=== PATIENT | female | born 1980 | race American Indian/Alaskan Native ===

== ENCOUNTER 2017-10-14 22:14 | Emergency (ER) | payer MEDICAID, OTHER ==
[2017-10-14 22:41] VITALS: BP 117/72
[2017-10-14] MEDS ORDERED: HYDROmorphone 1 MG/ML Syringe IM ONE (22:53)
[2017-10-14] MEDS ORDERED: diphenhydrAMINE 25 MG Cap PO ONE (22:53)
[2017-10-14] MEDS ORDERED: Ondansetron 4 MG Tab.DIS PO ONE (22:53)
--- NOTE | 2017-10-14 22:59 | EDM.PDOC ---
ED HPI GENERAL MEDICAL PROBLEM - General Chief Complaint: Headache Stated Complaint: Migraine Time Seen by Provider: 10/14/17 22:46 Source of Information: Reports: Patient, Family - History of Present Illness INITIAL COMMENTS - FREE TEXT/NARRATIVE: Patient reports migraine headache. She is here this evening due to the pain. Reports that she fell approximately 3 months ago and ever since then she has had daily migraine headaches. She does see neurology and her next appointment is this coming Sunday. Just states she's had problems with memory loss and she is seeing a specialist for this a week from this coming Sunday. She also does report some nausea. Additional symptoms that she reports is bladder incontinence. She has not had any of this this evening however. She was seen at the [facility] yesterday for similar symptoms and given Benadryl and an anti- inflammatory which she states was not helpful. She denies blurry vision. Additional symptoms denied include shortness of breath, chest pain, abdominal pain, fever or chills, any history of kidney problems. She denies blood in urine or stool or recent falls. Onset: Other Duration: Chronic Location: Reports: Head Quality: Reports: Stabbing Severity: Severe Associated Symptoms: Reports: Headaches, Nausea/Vomiting Treatments APPRENTICE: Reports: Other (see below) Other Treatments APPRENTICE: Toradol and Imitrex Headache Pain Score (Numeric/FACES): 10 - Related Data Allergies Allergy/AdvReac Type Severity Reaction Status Date / Time codeine Allergy Severe Anaphylactic Verified 10/13/17 19:15 Shock Home Meds: Home Meds Polyethylene Glycol 3350 [MiraLAX] 17 gm PO BID PRN 03/04/17 [History] Albuterol [Ventolin HFA] 2 puff PO Q2H PRN 07/24/17 [History] Amitriptyline [Elavil] 25 mg PO BEDTIME 07/24/17 [History] ClonazePAM [KlonoPIN] 0.5 mg PO BID 07/24/17 [History] Ibuprofen [Motrin] 600 mg PO Q6H #20 tab 07/24/17 [Rx] Escitalopram [Lexapro] 10 mg PO DAILY 07/30/17 [History] Past Medical History HEENT History: Reports: Impaired Vision Respiratory History: Reports: Other (See Below) Other Respiratory History: smoker Gastrointestinal History: Reports: Cholelithiasis, Hemorrhoids, Pancreatitis Genitourinary History: Reports: None 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 Uterine Bleeding, Musculoskeletal History: Reports: Arthritis Neurological History: Reports: Concussion, Headaches, Chronic, Migraines Other Neuro History: nuerofibromatosis, 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 Psychiatric History: Reports: Anxiety, Depression, Panic Attack, Psych Hospitalization(s), Suicide Attempt Hematologic History: Reports: Blood Transfusion(s) - Infectious Disease History Infectious Disease History: Reports: None - Past Surgical History GI Surgical History: Reports: Appendectomy, Cholecystectomy Female Surgical History: Reports: Section, Hysterectomy, Oophorectomy Social & Family History - Tobacco Use Smoking Status *Q: Current Every Day Smoker Years of Tobacco use: 11 Packs/Tins Daily: 0.5 Used Tobacco, but Quit: No Second Hand Smoke Exposure: Yes - Caffeine Use Caffeine Use: Reports: Coffee, Soda - Alcohol Use Days Per Week of Alcohol Use: 0 Number of Drinks Per Day: 2 Total Drinks Per Week: 0 - Recreational Drug Use Recreational Drug Use: No Drug Use in Last 12 Months: Yes Recreational Drug Type: Reports: Marijuana/Hashish Recreational Drug Use Frequency: Daily ED ROS GENERAL - Review of Systems Review Of Systems: See Below Constitutional: Reports: No Symptoms HEENT: Reports: No Symptoms Respiratory: Reports: No Symptoms Cardiovascular: Reports: No Symptoms Endocrine: Reports: No Symptoms GI/Abdominal: Reports: No Symptoms : Reports: No Symptoms Musculoskeletal: Reports: No Symptoms Skin: Reports: No Symptoms Neurological: Reports: Headache Psychiatric: Reports: No Symptoms Hematologic/Lymphatic: Reports: No Symptoms Immunologic: Reports: No Symptoms - Physical Exam Exam: See Below Exam Limited By: No Limitations General Appearance: Alert, WD/WN, Mild Distress Eye Exam: Bilateral Eye: EOMI, Normal Inspection, PERRL Ears: Normal TMs Nose: Normal Inspection, Normal Mucosa, No Blood Throat/Mouth: Normal Inspection, Normal Lips, Normal Teeth, Normal Gums, Normal Oropharynx, Normal Voice, No Airway Compromise Head Exam: Atraumatic, Normocephalic Neck: Normal Inspection, Supple, Non-Tender, Full Range of Motion Respiratory/Chest: No Respiratory Distress, Lungs Clear, Normal Breath Sounds, No Accessory Muscle Use, Chest Non-Tender Cardiovascular: Normal Peripheral Pulses, Regular Rate, Rhythm, No Edema, No Gallop, No JVD, No Murmur, No Rub GI/Abdominal: Normal Bowel Sounds, Soft, Non-Tender, No Organomegaly, No Distention, No Abnormal Bruit, No Mass Neuro Exam (Abbreviated): Alert, Oriented, CN II-XII Intact, Memory Loss Recent Events DTR: 2+: Patella (R), Patella (L), Achilles (R), Achilles (L) Back Exam: Normal Inspection, Full Range of Motion, NT Extremities: Normal Inspection, Normal Range of Motion, Non-Tender, No Pedal Edema, Normal Capillary Refill Psychiatric: Normal Affect, Normal Mood Skin Exam: Warm, Dry, Intact, Normal Color, No Rash Course - Vital Signs Last Recorded V/S: Last Vital Signs Temp 36.6 C 10/14/17 22:39 Pulse 90 10/14/17 22:39 Resp 16 10/14/17 22:39 BP 117/72 10/14/17 22:39 Pulse Ox 99 10/14/17 22:39 - Orders/Labs/Meds Meds: Medications Discontinued Medications Generic Name Dose Route Start Last Admin Trade Name Maryellen PRN Reason Stop Dose Admin Diphenhydramine HCl 25 mg 10/14/17 22:53 Benadryl PO 10/14/17 22:54 ONETIME ONE Hydromorphone HCl 1 mg 10/14/17 22:53 Dilaudid IM 10/14/17 22:54 ONETIME ONE Ondansetron HCl 4 mg 10/14/17 22:53 Zofran Odt PO 10/14/17 22:54 ONETIME ONE Departure - Departure Time of Disposition: 23:10 Disposition: Home, Self-Care 01 Condition: Good Clinical Impression: Migraine - Discharge Information Instructions: Migraine Headache, [id number] Referrals: Deborah Sandoval SLUBBER FRAME CHANGER [Primary Care Provider] - Forms: ED Department Discharge Additional Instructions: Please try to avoid triggers for your migraine headaches. These can include food items, smoking, caffeine, stress, illness, dehydration, to much exercise. It can be helpful to journal to determine what happens just prior to the onset of your headaches. Please make sure to follow up with your providers as scheduled. Stay well hydrated. Please contact us if you have additional questions or concerns. - Problem List & Annotations (1) Migraine SNOMED Code(s): 05196003 Code(s): G43.909 - MIGRAINE, UNSP, NOT INTRACTABLE, WITHOUT STATUS MIGRAINOSUS Status: Acute Priority: Medium Current Visit: Yes - Problem List Review Problem List Initiated/Reviewed/Updated: Yes - Assessment/Plan Assessment:: migraine headache Plan: Please try to avoid triggers for your migraine headaches. These can include food items, smoking, caffeine, stress, illness, dehydration, to much exercise. It can be helpful to journal to determine what happens just prior to the onset of your headaches. Please make sure to follow up with your providers as scheduled. Stay well hydrated. Please contact us if you have additional questions or concerns.
[2017-10-14] MEDS ORDERED: Take Home: Acetaminophen/HYDROcodone 325-10 MG, 5 Tab Pack PO ONE (23:11)
== END 2017-10-14 23:29 | disposition home or self-care (01) ==
LOC: VM.ED 22:14
DX: G43.909 Migraine, unspecified, not intractable, without status migrainosus (principal); F17.210 Nicotine dependence, cigarettes, uncomplicated; F41.9 Anxiety disorder, unspecified; F32.9 Major depressive disorder, single episode, unspecified; Z79.899 Other long term (current) drug therapy; Z88.5 Allergy status to narcotic agent; Z91.81 History of falling
CPT/HCPCS: 96372; 99283; A9270-GY; J1170

== ENCOUNTER 2017-11-21 21:19 | Emergency (ER) | payer MEDICAID ==
[2017-11-21] MEDS: Ketorolac 60 MG/2 ML SDV IM ONE (21:59)
[2017-11-21] MEDS: diphenhydrAMINE 50 MG/ML SDV IM ONE (22:00)
[2017-11-21] MEDS: Ondansetron 4 MG Tab.DIS PO ONE (22:00)
[2017-11-21 22:19] VITALS: BP 104/53
--- NOTE | 2017-11-22 03:41 | EDM.PDOC ---
ED HPI GENERAL MEDICAL PROBLEM - General Chief Complaint: Headache Stated Complaint: Right sided headache Time Seen by Provider: 11/21/17 21:35 Source of Information: Reports: Patient History Limitations: Reports: No Limitations - History of Present Illness INITIAL COMMENTS - FREE TEXT/NARRATIVE: Pt. presents to er with complaints of headache. He states that the discomfort started yesterday. Denies any fever or chills. No recent trauma. Denies any numbness/tingling in her face/extremities. Onset: Today Location: Reports: Head Quality: Reports: Ache Right Headache Pain Score (Numeric/FACES): 6 - Related Data Allergies Allergy/AdvReac Type Severity Reaction Status Date / Time codeine Allergy Severe Anaphylactic Verified 11/21/17 22:16 Shock Home Meds: Home Meds Polyethylene Glycol 3350 [MiraLAX] 17 gm PO BID PRN 03/04/17 [History] Albuterol [Ventolin HFA] 2 puff PO Q2H PRN 07/24/17 [History] Amitriptyline [Elavil] 25 mg PO BEDTIME 07/24/17 [History] ClonazePAM [KlonoPIN] 0.5 mg PO BID 07/24/17 [History] Ibuprofen [Motrin] 600 mg PO Q6H #20 tab 07/24/17 [Rx] Escitalopram [Lexapro] 10 mg PO DAILY 07/30/17 [History] Past Medical History HEENT History: Reports: Impaired Vision Respiratory History: Reports: Other (See Below) Other Respiratory History: smoker Gastrointestinal History: Reports: Cholelithiasis, Hemorrhoids, Pancreatitis Genitourinary History: Reports: None 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, Musculoskeletal History: Reports: Arthritis Neurological History: Reports: Concussion, Headaches, Chronic, Migraines Other Neuro History: nuerofibromatosis, 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 Psychiatric History: Reports: Anxiety, Depression, Panic Attack, Psych Hospitalization(s), Suicide Attempt Hematologic History: Reports: Blood Transfusion(s) - Infectious Disease History Infectious Disease History: Reports: None - Past Surgical History GI Surgical History: Reports: Appendectomy, Cholecystectomy Female Surgical History: Reports: Section, Hysterectomy, Oophorectomy Social & Family History - Caffeine Use Caffeine Use: Reports: Coffee, Soda ED ROS GENERAL - Review of Systems Review Of Systems: See Below Constitutional: Reports: No Symptoms HEENT: Reports: No Symptoms Respiratory: Reports: No Symptoms Cardiovascular: Reports: No Symptoms Endocrine: Reports: No Symptoms GI/Abdominal: Reports: No Symptoms : Reports: No Symptoms Musculoskeletal: Reports: No Symptoms Skin: Reports: No Symptoms Neurological: Reports: Headache. Denies: Confusion, Dizziness, Numbness, Paresthesia, Pre-Existing Deficit, Seizure, Syncope, Trouble Speaking, Difficulty Walking, Change in Speech, Gait Disturbance Psychiatric: Reports: No Symptoms Hematologic/Lymphatic: Reports: No Symptoms Immunologic: Reports: No Symptoms ED EXAM, GENERAL - Physical Exam Exam: See Below Exam Limited By: No Limitations General Appearance: Alert, WD/WN, No Apparent Distress Eye Exam: Bilateral Eye: EOMI, Normal Fundi, Normal Inspection, PERRL Ears: Normal External Exam, Normal Canal, Hearing Grossly Normal, Normal TMs Ear Exam: Bilateral Ear: Auricle Normal, Canal Normal, TM normal Nose: Normal Inspection, Normal Mucosa, No Blood Throat/Mouth: Normal Inspection, Normal Lips, Normal Teeth, Normal Gums, Normal Oropharynx, Normal Voice, No Airway Compromise Head: Atraumatic, Normocephalic Neck: Normal Inspection, Supple, Non-Tender, Full Range of Motion Respiratory/Chest: No Respiratory Distress, Lungs Clear, Normal Breath Sounds, No Accessory Muscle Use, Chest Non-Tender Cardiovascular: Normal Peripheral Pulses, Regular Rate, Rhythm, No Edema, No Gallop, No JVD, No Murmur, No Rub Peripheral Pulses: 4+: Radial (L), Radial (R) GI/Abdominal: Normal Bowel Sounds, Soft, Non-Tender, No Organomegaly, No Distention, No Abnormal Bruit, No Mass (Female) Exam: Deferred Rectal (Female) Exam: Deferred Back Exam: Normal Inspection, Full Range of Motion, NT Extremities: Normal Inspection, Normal Range of Motion, Non-Tender, Normal Capillary Refill, No Pedal Edema Neurological: Alert, Oriented, CN II-XII Intact, Normal Cognition, Normal Gait, Normal Reflexes, No Motor/Sensory Deficits Psychiatric: Normal Affect, Normal Mood Skin Exam: Warm, Dry, Intact, Normal Color, No Rash Lymphatic: No Adenopathy Course - Vital Signs Last Recorded V/S: Last Vital Signs Temp 35.9 C 11/21/17 21:45 Pulse 48 L 11/21/17 21:45 Resp 16 11/21/17 21:45 BP 104/53 L 11/21/17 21:45 Pulse Ox - Orders/Labs/Meds Meds: Medications Discontinued Medications Generic Name Dose Route Start Last Admin Trade Name Maryellen PRN Reason Stop Dose Admin Chlorpromazine HCl 50 mg 11/21/17 21:40 11/21/17 22:05 Thorazine IM 11/21/17 21:41 50 mg ONETIME ONE Administration Diphenhydramine HCl 50 mg 11/21/17 21:40 11/21/17 22:00 Benadryl IM 11/21/17 21:41 50 mg ONETIME ONE Administration Ketorolac Tromethamine 60 mg 11/21/17 21:41 11/21/17 21:59 Toradol IM 11/21/17 21:42 60 mg ONETIME ONE Administration Ondansetron HCl 4 mg 11/21/17 21:42 11/21/17 22:00 Zofran Odt PO 11/21/17 21:43 4 mg ONETIME ONE Administration Departure - Departure Time of Disposition: 22:33 Disposition: Home, Self-Care 01 Clinical Impression: Migraine - Discharge Information Instructions: Migraine Headache Referrals: Taina Graham MD [Primary Care Provider] - Forms: ED Department Discharge Additional Instructions: Home to rest. Ibuprofen 800mg every 8 hours Follow-up in clinic in 7-10 days for recheck.
== END 2017-11-21 22:33 | disposition home or self-care (01) ==
LOC: VM.ED 21:19
DX: G43.909 Migraine, unspecified, not intractable, without status migrainosus (principal); Z88.5 Allergy status to narcotic agent; Z79.899 Other long term (current) drug therapy; F41.9 Anxiety disorder, unspecified; F32.9 Major depressive disorder, single episode, unspecified; F17.200 Nicotine dependence, unspecified, uncomplicated
CPT/HCPCS: 96372; 99283; A9270; J1200; J1885; J3230

== ENCOUNTER 2018-01-13 05:00 | Emergency (ER) | payer MEDICAID ==
[2018-01-13 05:09] VITALS: BP 118/71
--- NOTE | 2018-01-13 07:39 | EDM.PDOC ---
ED HPI GENERAL MEDICAL PROBLEM - General Chief Complaint: Lower Extremity Injury/Pain Stated Complaint: Injury to top of right foot Time Seen by Provider: 01/13/18 05:15 Source of Information: Reports: Patient History Limitations: Reports: No Limitations - History of Present Illness INITIAL COMMENTS - FREE TEXT/NARRATIVE: Pt. states that a piece of wood was accidentally dropped on her R foot. He complains of an abrasion to the top of the foot and discomfort with movement/ ambulation. Denies any injury elsewhere. Location: Reports: Lower Extremity, Right Quality: Reports: Ache, Throbbing Severity: Moderate top of right foot Pain Score (Numeric/FACES): 7 - Related Data Allergies Allergy/AdvReac Type Severity Reaction Status Date / Time codeine Allergy Severe Anaphylactic Verified 01/13/18 05:10 Shock Home Meds: Home Meds Polyethylene Glycol 3350 [MiraLAX] 17 gm PO BID PRN 03/04/17 [History] Albuterol [Ventolin HFA] 2 puff PO Q2H PRN 07/24/17 [History] Amitriptyline [Elavil] 25 mg PO BEDTIME 07/24/17 [History] ClonazePAM [KlonoPIN] 0.5 mg PO BID 07/24/17 [History] Ibuprofen [Motrin] 600 mg PO Q6H #20 tab 07/24/17 [Rx] Escitalopram [Lexapro] 10 mg PO DAILY 07/30/17 [History] Past Medical History HEENT History: Reports: Impaired Vision Respiratory History: Reports: Other (See Below) Other Respiratory History: smoker Gastrointestinal History: Reports: Cholelithiasis, Hemorrhoids, Pancreatitis Genitourinary History: Reports: None 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: Dysfunctional Uterine Bleeding, Musculoskeletal History: Reports: Arthritis Neurological History: Reports: Concussion, Headaches, Chronic, Migraines Other Neuro History: nuerofibromatosis, 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 Psychiatric History: Reports: Anxiety, Depression, Panic Attack, Psych Hospitalization(s), Suicide Attempt Hematologic History: Reports: Blood Transfusion(s) - Infectious Disease History Infectious Disease History: Reports: None - Past Surgical History GI Surgical History: Reports: Appendectomy, Cholecystectomy Female Surgical History: Reports: Section, Hysterectomy, Oophorectomy Social & Family History - Caffeine Use Caffeine Use: Reports: Coffee, Soda Review of Systems - Review of Systems Review Of Systems: See Below Constitutional: Reports: No Symptoms Musculoskeletal: Reports: Foot Pain Skin: Reports: No Symptoms Neurological: Reports: No Symptoms ED EXAM, GENERAL - Physical Exam Exam: See Below Exam Limited By: No Limitations General Appearance: Alert, WD/WN, No Apparent Distress Peripheral Pulses: 4+: Radial (L), Radial (R), Posterior Tibial (L), Posterior Tibial (R), Dorsalis Pedis (L), Dorsalis Pedis (R) Extremities: Normal Capillary Refill, Limited Range of Motion, Other (small abrasion, edema, and bruising noted to top of R foot. No crepitus noted. ROM is limited.) Course - Vital Signs Last Recorded V/S: Last Vital Signs Temp 36.9 C 01/13/18 05:00 Pulse 103 H 01/13/18 05:00 Resp 16 01/13/18 05:00 BP 118/71 01/13/18 05:00 Pulse Ox - Orders/Labs/Meds Orders: Active Orders 24 hr Category Date Time Status Foot Comp Min 3V Rt [CR] Stat Exams 01/13/18 05:16 Taken DME for Discharge [COMM] Routine Oth 01/13/18 06:15 Ordered - Radiology Interpretation Free Text/Narrative:: radiographs of R foot are negative Departure - Departure Time of Disposition: 06:17 Disposition: Home, Self-Care 01 Clinical Impression: Contusion, foot - Discharge Information Instructions: Foot Contusion, [id number] Referrals: PCP,Unobtain [Primary Care Provider] - Forms: ED Department Discharge Additional Instructions: Tylenol or ibuprofen for discomfort. Ice foot for 10-15 min every 1-2 hours Elevate foot above level of heart as much as possible. Follow-up in clinic if not gradually improving. - My Orders Last 24 Hours: My Active Orders 01/13/18 05:16 Foot Comp Min 3V Rt [CR] Stat 01/13/18 06:15 DME for Discharge [COMM] Routine - Assessment/Plan Last 24 Hours: My Active Orders 01/13/18 05:16 Foot Comp Min 3V Rt [CR] Stat 01/13/18 06:15 DME for Discharge [COMM] Routine Plan: Tylenol or ibuprofen for discomfort. Ice foot for 10-15 min every 1-2 hours Elevate foot above level of heart as much as possible. Follow-up in clinic if not gradually improving.
== END 2018-01-13 06:23 | disposition home or self-care (01) ==
LOC: VM.ED 05:00
DX: S90.31XA Contusion of right foot, initial encounter (principal); Z88.5 Allergy status to narcotic agent; Z79.899 Other long term (current) drug therapy; W20.8XXA Other cause of strike by thrown, projected or falling object, initial encounter
CPT/HCPCS: 73630-RT; 99283

== ENCOUNTER 2018-09-09 21:05 | Emergency (ER) | payer OTHER, MEDICAID ==
[2018-09-09] MEDS: Ketorolac 30 MG/ML SDV IM ONE (22:00)
--- NOTE | 2018-09-09 22:42 | EDM.PDOC ---
ED HPI GENERAL MEDICAL PROBLEM - General Chief Complaint: Upper Extremity Injury/Pain Stated Complaint: RT SHOULDER/ELBOW PAIN Time Seen by Provider: 09/09/18 21:09 Source of Information: Reports: Patient History Limitations: Reports: No Limitations - History of Present Illness INITIAL COMMENTS - FREE TEXT/NARRATIVE: Patient presents with right elbow and shoulder pain. 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 She states she has numbness/tingling to her fingers. Injury is closed with limited swelling. Denies loss of consciousness. Onset: Today, Sudden Duration: Intermittent Location: Reports: Upper Extremity, Right Quality: Reports: Ache, Throbbing Severity: Mild Improves with: Reports: Cold Therapy Worsens with: Reports: Movement Associated Symptoms: Reports: No Other Symptoms - Related Data Allergies Allergy/AdvReac Type Severity Reaction Status Date / Time codeine Allergy Severe Anaphylactic Verified 06/26/18 13:40 Shock Home Meds: Home Meds Albuterol [Ventolin HFA] 1 - 2 puff PO Q4HR PRN 07/24/17 [History] Amitriptyline [Elavil] 25 mg PO BEDTIME 07/24/17 [History] Ibuprofen [Motrin] 600 mg PO Q6H #20 tab 07/24/17 [Rx] Rizatriptan Benzoate [Rizatriptan] 10 mg PO ASDIRECTED 06/26/18 [History] Past Medical History HEENT History: Reports: Impaired Vision Respiratory History: Reports: Other (See Below) Other Respiratory History: smoker Gastrointestinal History: Reports: Cholelithiasis, Hemorrhoids, Pancreatitis Genitourinary History: Reports: None 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, Musculoskeletal History: Reports: Arthritis Neurological History: Reports: Concussion, Headaches, Chronic, Migraines Other Neuro History: nuerofibromatosis, 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 Psychiatric History: Reports: Anxiety, Depression, Panic Attack, Psych Hospitalization(s), Suicide Attempt Hematologic History: Reports: Blood Transfusion(s) - Infectious Disease History Infectious Disease History: Reports: None - Past Surgical History GI Surgical History: Reports: Appendectomy, Cholecystectomy Female Surgical History: Reports: Section, Hysterectomy, Oophorectomy Social & Family History - Caffeine Use Caffeine Use: Reports: Coffee, Soda Review of Systems - Review of Systems Review Of Systems: See Below Constitutional: Reports: No Symptoms Eyes: Reports: No Symptoms Ears: Reports: No Symptoms Nose: Reports: No Symptoms Mouth/Throat: Reports: No Symptoms Respiratory: Reports: No Symptoms Cardiovascular: Reports: No Symptoms GI/Abdominal: Reports: No Symptoms Genitourinary: Reports: No Symptoms Musculoskeletal: Reports: Shoulder Pain (right shoulder and elbow), Arm Pain Skin: Reports: No Symptoms Neurological: Reports: Numbness, Tingling (to right fingers) Psychiatric: Reports: No Symptoms ED EXAM, GENERAL - Physical Exam Exam: See Below Exam Limited By: No Limitations General Appearance: Alert, WD/WN, No Apparent Distress Eye Exam: Bilateral Eye: EOMI, Normal Inspection, PERRL Neck: Normal Inspection, Supple, Non-Tender, Full Range of Motion Respiratory/Chest: No Respiratory Distress, Lungs Clear, Normal Breath Sounds, No Accessory Muscle Use, Chest Non-Tender Cardiovascular: Normal Peripheral Pulses, Regular Rate, Rhythm, No Edema, No Gallop, No JVD, No Murmur, No Rub GI/Abdominal: Normal Bowel Sounds, Soft, Non-Tender, No Organomegaly, No Distention, No Abnormal Bruit, No Mass Extremities: Normal Inspection, Non-Tender, No Pedal Edema, Normal Capillary Refill, Limited Range of Motion (full rom to left shoulder and arm, full rom to right shoulder, limited and painful ROM to right elbow on extension) Neurological: Alert, Oriented, CN II-XII Intact, Normal Cognition, Normal Gait, Normal Reflexes, No Motor/Sensory Deficits Psychiatric: Normal Affect, Normal Mood Skin Exam: Warm, Dry, Intact, Normal Color, No Rash Lymphatic: No Adenopathy Course - Orders/Labs/Meds Orders: Active Orders 24 hr Category Date Time Status Elbow 2V Rt [CR] Stat Exams 09/09/18 21:09 Ordered Shoulder Comp Rt [CR] Stat Exams 09/09/18 21:09 Ordered Departure - Departure Time of Disposition: 21:45 Disposition: Home, Self-Care 01 Condition: Good Clinical Impression: Traumatic ecchymosis of right shoulder, Elbow sprain - Discharge Information *PRESCRIPTION DRUG MONITORING PROGRAM REVIEWED*: Not Applicable *COPY OF PRESCRIPTION DRUG MONITORING REPORT IN PATIENT STAR: Not Applicable Instructions: Elastic Bandage and RICE, Cryotherapy, [id number] Referrals: Rocío Pacheco MD [Primary Care Provider] - Forms: ED Department Discharge Additional Instructions: Plan 1. I did not see any x-ray evidence of fracture 2. Wrap the elbow with a compression bandage, use ice, elevate, to reduce swelling 3. Call Dr. Pacheco in the morning to schedule an appointment with her for SundaySeptember 16 so you can have an MRI if your arm is not improving 4. Alternate ibuprofen and tylenol for pain and swelling 5. Call the ER if you have any additional questions or concerns - Problem List & Annotations (1) Elbow sprain SNOMED Code(s): 242510452 Code(s): S53.409A - UNSPECIFIED SPRAIN OF UNSPECIFIED ELBOW, INITIAL ENCOUNTER Status: Acute Priority: Low Current Visit: Yes Qualifiers: Laterality: right (2) Traumatic ecchymosis of right shoulder SNOMED Code(s): 767736900 Code(s): S40.011A - CONTUSION OF RIGHT SHOULDER, INITIAL ENCOUNTER Status: Acute Priority: Low Current Visit: Yes Qualifiers: Encounter type: initial encounter Qualified Code(s): S40.011A - Contusion of right shoulder, initial encounter - Problem List Review Problem List Initiated/Reviewed/Updated: Yes - My Orders Last 24 Hours: My Active Orders 09/09/18 21:09 Elbow 2V Rt [CR] Stat Shoulder Comp Rt [CR] Stat - Assessment/Plan Last 24 Hours: My Active Orders 09/09/18 21:09 Elbow 2V Rt [CR] Stat Shoulder Comp Rt [CR] Stat Assessment:: right shoulder sprain right elbow sprain Plan: Plan 1. I did not see any x-ray evidence of fracture 2. Wrap the elbow with a compression bandage, use ice, elevate, to reduce swelling 3. Call Dr. Pacheco in the morning to schedule an appointment with her for SundaySeptember 16 so you can have an MRI if your arm is not improving 4. Alternate ibuprofen and tylenol for pain and swelling 5. Call the ER if you have any additional questions or concerns
[2018-09-10 01:28] VITALS: BP 116/76
--- NOTE | 2018-09-10 08:36 | CR ---
[id number] RAD/RAD Elbow Right 2V EXAM: 2 VIEWS RIGHT ELBOW. INDICATION: FALL. COMPARISON: None. DISCUSSION: No fracture, dislocation or other acute osseous abnormality. IMPRESSION: 1. NO ACUTE OSSEOUS ABNORMALITIES. Oren Maloney DO 09/10/18 0834 Thank you for allowing us to participate in the care of your patient.
--- NOTE | 2018-09-10 08:38 | CR ---
[id number] RAD/RAD Shoulder Right 2V Min EXAM: 3 VIEWS RIGHT SHOULDER. INDICATION: FALL. COMPARISON: None. DISCUSSION: No fracture, dislocation or other acute osseous abnormality. IMPRESSION: 1. No acute osseous abnormalities. Oren Maloney DO 09/10/18 0836 Thank you for allowing us to participate in the care of your patient.
== END 2018-09-09 22:08 | disposition home or self-care (01) ==
LOC: VM.ED 21:05
DX: S43.401A Unspecified sprain of right shoulder joint, initial encounter (principal); S53.401A Unspecified sprain of right elbow, initial encounter; F32.9 Major depressive disorder, single episode, unspecified; Z88.5 Allergy status to narcotic agent; Z79.899 Other long term (current) drug therapy; W00.0XXA Fall on same level due to ice and snow, initial encounter
CPT/HCPCS: 73030-RT; 73070-RT; 96372; 99283-25; J1885

== ENCOUNTER 2018-10-13 17:49 | Emergency (ER) | payer MEDICAID, OTHER ==
[2018-10-13] MEDS: Fluorescein 1 MG Ophth Strip EYEBOTH ONE (18:38)
[2018-10-13] MEDS: Proparacaine 0.5% Ophth Soln 15 ML Bottle EYELF ONE (18:38)
[2018-10-13] MEDS: Take Home: Diclofenac Sodium 0.1% Ophth Soln 5 ML, 1 Bottle Pack EYEBOTH ONE (18:58)
[2018-10-13] MEDS: Take Home: Gentamicin 0.3% Ophth Soln 5 ML, 1 Bottle Pack EYEBOTH ONE (18:59)
[2018-10-13 19:13] VITALS: BP 122/69
--- NOTE | 2018-10-14 05:47 | EDM.PDOC ---
ED HPI GENERAL MEDICAL PROBLEM - General Chief Complaint: ENT Problem Stated Complaint: EYES Time Seen by Provider: 10/13/18 18:30 Source of Information: Reports: Patient History Limitations: Reports: No Limitations - History of Present Illness INITIAL COMMENTS - FREE TEXT/NARRATIVE: Pt. presents to ER with bilateral eye irritation. She states that she is not sure the cause. She states that she has not been doing any grinding or activity that would predispose her to eye injury. Denies any fume or chemical exposure. No fever or chills. She states that her eyes are mattering somewhat. She states that her discomfort is significant enough that she is unable to open her eyes. No known sick contacts. Onset Date: 10/13/18 Bilateral Eye Pain Score (Numeric/FACES): 10 - Related Data Allergies Allergy/AdvReac Type Severity Reaction Status Date / Time codeine Allergy Severe Anaphylactic Verified 10/13/18 18:36 Shock Home Meds: Home Meds Albuterol [Ventolin HFA] 1 - 2 puff PO Q4HR PRN 07/24/17 [History] Amitriptyline [Elavil] 25 mg PO BEDTIME 07/24/17 [History] Ibuprofen [Motrin] 600 mg PO Q6H #20 tab 07/24/17 [Rx] Rizatriptan Benzoate [Rizatriptan] 10 mg PO ASDIRECTED 06/26/18 [History] Past Medical History HEENT History: Reports: Impaired Vision Respiratory History: Reports: Other (See Below) Other Respiratory History: smoker Gastrointestinal History: Reports: Cholelithiasis, Hemorrhoids, Pancreatitis Genitourinary History: Reports: None 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, Musculoskeletal History: Reports: Arthritis Neurological History: Reports: Concussion, Headaches, Chronic, Migraines Other Neuro History: nuerofibromatosis, 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 Psychiatric History: Reports: Anxiety, Depression, Panic Attack, Psych Hospitalization(s), Suicide Attempt Hematologic History: Reports: Blood Transfusion(s) - Infectious Disease History Infectious Disease History: Reports: None - Past Surgical History GI Surgical History: Reports: Appendectomy, Cholecystectomy Female Surgical History: Reports: Section, Hysterectomy, Oophorectomy Social & Family History - Tobacco Use Smoking Status *Q: Current Every Day Smoker Years of Tobacco use: 12 Packs/Tins Daily: 0.5 - Caffeine Use Caffeine Use: Reports: Coffee, Soda - Recreational Drug Use Recreational Drug Use: Yes Drug Use in Last 12 Months: Yes Recreational Drug Type: Reports: Marijuana/Hashish Recreational Drug Use Frequency: Weekly ED ROS GENERAL - Review of Systems Review Of Systems: See Below Constitutional: Reports: No Symptoms HEENT: Reports: Eye Discharge, Eye Pain Respiratory: Reports: No Symptoms Cardiovascular: Reports: No Symptoms Endocrine: Reports: No Symptoms GI/Abdominal: Reports: No Symptoms : Reports: No Symptoms Musculoskeletal: Reports: No Symptoms Skin: Reports: No Symptoms Neurological: Reports: No Symptoms Psychiatric: Reports: No Symptoms Hematologic/Lymphatic: Reports: No Symptoms Immunologic: Reports: No Symptoms ED EXAM, GENERAL - Physical Exam Exam: See Below Exam Limited By: No Limitations General Appearance: Alert, WD/WN, Moderate Distress Eye Exam: Bilateral Eye: Conjunctival Injection, Other (exam difficult due to squinting despite copious application of proparacaine. No obvious corneal abrasion noted. No retained material in the underside of the eyelids) Course - Vital Signs Last Recorded V/S: Last Vital Signs Temp 37.0 C 10/13/18 19:11 Pulse 52 L 10/13/18 19:11 Resp 16 10/13/18 19:11 BP 122/69 10/13/18 19:11 Pulse Ox 100 10/13/18 19:11 - Orders/Labs/Meds Meds: Medications Discontinued Medications Generic Name Dose Route Start Last Admin Trade Name Maryellen PRN Reason Stop Dose Admin Diclofenac Sodium 1 packet 10/13/18 18:48 10/13/18 18:58 Take Home: Diclofenac 0.1% Ophth, 1 Bottle EYEBOTH 10/13/18 18:49 1 packet ONETIME ONE Administration Fluorescein Sodium 1 mg 10/13/18 18:33 10/13/18 18:38 Ful-Jennifer EYEBOTH 10/13/18 18:34 1 mg ONETIME ONE Administration Gentamicin Sulfate 1 packet 10/13/18 18:48 10/13/18 18:59 Take Home: Gentamicin 0.3% Ophth Soln, 1 David EYEBOTH 10/13/18 18:49 1 packet ONETIME ONE Administration Proparacaine HCl 1 ml 10/13/18 18:33 10/13/18 18:38 Proparacaine 0.5% Ophth Soln EYELF 10/13/18 18:34 2 drop ONETIME ONE Administration Departure - Departure Time of Disposition: 19:00 Disposition: Home, Self-Care 01 Condition: Good Clinical Impression: Conjunctivitis - Discharge Information Instructions: Viral Conjunctivitis, Adult Referrals: Rocío Pacheco MD [Primary Care Provider] - Forms: ED Department Discharge Additional Instructions: Gentamicin drops 1 drop to both eyes 6 times per day for 7 days diclofenac drops 1 drop to both eyes 4 times daily for 5 days Follow-up in eye clinic of choice tomorrow or Sunday for slit lamp exam. Return to ER if you have any vision change or loss. - Assessment/Plan Plan: Gentamicin drops 1 drop to both eyes 6 times per day for 7 days diclofenac drops 1 drop to both eyes 4 times daily for 5 days Follow-up in eye clinic of choice tomorr or Sunday for slit lamp exam. Return to ER if you have any vision change or loss.
== END 2018-10-13 19:00 | disposition home or self-care (01) ==
LOC: VM.ED 17:49 → SUPCPDRO 17:49 → VM.ED 19:00
DX: H10.9 Unspecified conjunctivitis (principal); F41.9 Anxiety disorder, unspecified; F32.9 Major depressive disorder, single episode, unspecified; F17.210 Nicotine dependence, cigarettes, uncomplicated; Z88.5 Allergy status to narcotic agent; Z79.899 Other long term (current) drug therapy
CPT/HCPCS: 99282; A9270-GY

== ENCOUNTER 2018-11-13 10:51 | Emergency (ER) | payer MEDICAID ==
[2018-11-13] MEDS ORDERED: Ketorolac 30 MG/ML SDV IM ONE (11:47)
[2018-11-13 11:48] VITALS: BP 121/58
[2018-11-13] MEDS ORDERED: cefTRIAXone 2 GM Vial IM ONE (12:32)
--- NOTE | 2018-11-13 12:33 | EDM.PDOC ---
ED HPI GENERAL MEDICAL PROBLEM - General Chief Complaint: Gastrointestinal Problem Stated Complaint: stomach pain and nausea Time Seen by Provider: 11/13/18 11:01 Source of Information: Reports: Patient History Limitations: Reports: No Limitations - History of Present Illness INITIAL COMMENTS - FREE TEXT/NARRATIVE: Patient complains of abdominal pain that started this AM. She states it is in the left lower quadrant from back to right. No urinary symptoms, no chills or fever. Denies shortness of breath, no chest pain. Does have nausea and vomiting. No altered mental status, falls, injuries. Onset: Today Duration: Intermittent Location: Reports: Abdomen, Back Quality: Reports: Stabbing Severity: Moderate Worsens with: Reports: Movement Associated Symptoms: Reports: No Other Symptoms - Related Data Allergies Allergy/AdvReac Type Severity Reaction Status Date / Time codeine Allergy Severe Anaphylactic Verified 11/13/18 11:50 Shock Home Meds: Home Meds . 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 Psychiatric History: Reports: Anxiety, Depression, Panic Attack, Psych Hospitalization(s), Suicide Attempt Hematologic History: Reports: Blood Transfusion(s) - Infectious Disease History Infectious Disease History: Reports: None - Past Surgical History GI Surgical History: Reports: Appendectomy, Cholecystectomy Female Surgical History: Reports: Section, Hysterectomy, Oophorectomy Social & Family History - Caffeine Use Caffeine Use: Reports: Coffee, Soda ED ROS GENERAL - Review of Systems Review Of Systems: See Below Constitutional: Reports: No Symptoms HEENT: Reports: No Symptoms Respiratory: Reports: No Symptoms Cardiovascular: Reports: No Symptoms Endocrine: Reports: No Symptoms GI/Abdominal: Reports: Abdominal Pain, Nausea, Vomiting : Reports: No Symptoms Musculoskeletal: Reports: No Symptoms Skin: Reports: No Symptoms Neurological: Reports: No Symptoms Psychiatric: Reports: No Symptoms Hematologic/Lymphatic: Reports: No Symptoms Immunologic: Reports: No Symptoms ED EXAM, GI/ABD - Physical Exam Exam: See Below Exam Limited By: No Limitations General Appearance: Alert, WD/WN, Mild Distress Eyes: Bilateral: Normal Appearance, EOMI Ears: Normal TMs Nose: Normal Inspection, Normal Mucosa, No Blood Throat/Mouth: Normal Inspection, Normal Lips, Normal Teeth, Normal Gums, Normal Oropharynx, Normal Voice, No Airway Compromise Head: Atraumatic, Normocephalic Neck: Normal Inspection, Supple, Non-Tender, Full Range of Motion Respiratory/Chest: No Respiratory Distress, Lungs Clear, Normal Breath Sounds, No Accessory Muscle Use, Chest Non-Tender Cardiovascular: Normal Peripheral Pulses, Regular Rate, Rhythm, No Edema, No Gallop, No JVD, No Murmur, No Rub GI/Abdominal Exam: Normal Bowel Sounds, Soft, Tender Back Exam: CVA Tenderness (L) Extremities: Normal Inspection, Normal Range of Motion, Non-Tender, Normal Capillary Refill, No Pedal Edema Neurological: Alert, Oriented, CN II-XII Intact, Normal Cognition, Normal Gait, Normal Reflexes, No Motor/Sensory Deficits Psychiatric: Normal Affect, Normal Mood Skin Exam: Other (multiple scablike wounds in varying stages of healing) Departure - Departure Time of Disposition: 12:55 Disposition: Home, Self-Care 01 Condition: Good Clinical Impression: Pyelonephritis - Discharge Information *PRESCRIPTION DRUG MONITORING PROGRAM REVIEWED*: Not Applicable *COPY OF PRESCRIPTION DRUG MONITORING REPORT IN PATIENT STAR: Not Applicable Instructions: Pyelonephritis, Adult, [id number], Ciprofloxacin tablets Additional Instructions: Plan You have a left sided pyelonephritis, an infection of the kidney. Take the full dose of Cipro. 500 mg twice a day for 5 days and follow up at the clinic in 7-10 days to be sure this has resolved. They will want a urine test Eat 1-2 servings of yogurt daily to prevent a bacterial infection of the intestines due to antibiotic use. You can also take daily probiotics for 3-4 weeks. Stay well hydrated. Your kidneys need fluid to help heal the lining of the kidney which is irritated Please call or return to the ED or clinic if you have any worsening symptoms Please call with any questions or concerns - Problem List & Annotations (1) Pyelonephritis SNOMED Code(s): 75772412 Code(s): N12 - TUBULO-INTERSTITIAL NEPHRITIS, NOT SPCF ACUTE OR CHRONIC Status: Acute Priority: Low Current Visit: Yes - Problem List Review Problem List Initiated/Reviewed/Updated: Yes - Assessment/Plan Assessment:: Left pyelonephritis Plan: Plan You have a left sided pyelonephritis, an infection of the kidney. Take the full dose of Cipro. 500 mg twice a day for 5 days and follow up at the clinic in 7-10 days to be sure this has resolved. They will want a urine test Eat 1-2 servings of yogurt daily to prevent a bacterial infection of the intestines due to antibiotic use. You can also take daily probiotics for 3-4 weeks. Stay well hydrated. Your kidneys need fluid to help heal the lining of the kidney which is irritated Please call or return to the ED or clinic if you have any worsening symptoms Please call with any questions or concerns
== END 2018-11-13 13:13 | disposition home or self-care (01) ==
LOC: VM.ED 10:51
DX: N12 Tubulo-interstitial nephritis, not specified as acute or chronic (principal); Z88.5 Allergy status to narcotic agent
CPT/HCPCS: 81001; 96372; 99284; J0696; J1885

== ENCOUNTER 2019-10-09 13:53 | Emergency (ER) | payer MEDICAID ==
[2019-10-09] MEDS ORDERED: Lactated Ringers 1,000 ML IV ONE (14:11)
[2019-10-09] MEDS ORDERED: Sodium Chloride 0.9% 10 ML Syringe FLUSH PRN (14:11)
[2019-10-09] MEDS ORDERED: Pantoprazole 40 MG Vial IVPUSH ONE (14:11)
[2019-10-09] MEDS ORDERED: Haloperidol Lactate 5 MG/ML SDV IV ONE (14:11)
[2019-10-09 14:48] LABS: CHLORIDE,CL 106 mmol/L (98-107); SODIUM,NA 142 mmol/L (136-145)
[2019-10-09 14:50] LABS: ANION GAP 16.5 mmol/L (10-20)
[2019-10-09 15:49] LABS: BARBITURATE SCREEN,URINE NEGATIVE (NEGATIVE); BENZODIAZEPINES SCREEN,URINE NEGATIVE (NEGATIVE); EDDP,URINE SCREEN NEGATIVE (NEGATIVE); METHAMPHETAMINE SCREEN, URINE POSITIVE (NEGATIVE); TCA SCREEN,URINE NEGATIVE (NEGATIVE); THC SCREEN,URINE 50 NG/ML POSITIVE (NEGATIVE)
--- NOTE | 2019-10-09 16:48 | EDM.PDOC ---
ED HPI GENERAL MEDICAL PROBLEM - General Chief Complaint: Abdominal Pain Time Seen by Provider: 10/09/19 14:10 Source of Information: Reports: Patient History Limitations: Reports: No Limitations - History of Present Illness INITIAL COMMENTS - FREE TEXT/NARRATIVE: Patient comes emergency department today with her significant other with complaints of nausea vomiting and abdominal pain. Is admit to using marijuana on a daily basis. For the past couple of days she has had some nausea and vomiting. Today it was getting out of control and she could not keep anything down. She does complain of the chills but she does not know if she had a fever. Her pain is generalized throughout her abdomen. She denies any diarrhea. No hematuria dysuria or urinary frequency. She does complain of some lightheadedness but no vertigo. NO CP SOB or difficulty breathing. 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, Musculoskeletal History: Reports: Arthritis Neurological History: Reports: Concussion, Headaches, Chronic, Migraines Other Neuro History: nuerofibromatosis, 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 ED EXAM, GI/ABD - Physical Exam Exam: See Below General Appearance: Alert, WD/WN, Mild Distress Eyes: Bilateral: EOMI Ears: Normal External Exam Nose: Normal Inspection Throat/Mouth: Normal Inspection, Normal Lips, Normal Oropharynx Head: Atraumatic, Normocephalic Neck: Normal Inspection, Supple, Non-Tender Respiratory/Chest: No Respiratory Distress, Lungs Clear, No Accessory Muscle Use Cardiovascular: Normal Peripheral Pulses, Regular Rate, Rhythm, Bradycardia GI/Abdominal Exam: Normal Bowel Sounds, Soft, Tender (generalized). No: Distended, Guarding, Rigid, Rebound, Abnormal Bowel Sounds (Female) Exam: Deferred Rectal (Female) Exam: Deferred Back Exam: Normal Inspection Extremities: Normal Inspection Neurological: Alert, Normal Cognition, No Motor/Sensory Deficits Psychiatric: Anxious Skin Exam: Intact, Normal Color, Cool, Diaphoretic Course - Vital Signs Last Recorded V/S: Last Vital Signs Temp 36.0 C L 10/09/19 14:00 Pulse 53 L 10/09/19 15:40 Resp 16 10/09/19 15:40 BP 120/54 L 10/09/19 15:40 Pulse Ox 100 10/09/19 15:40 - Orders/Labs/Meds Orders: Active Orders 24 hr Category Date Time Status EKG Documentation Completion [RC] STAT Care 10/09/19 14:11 Active Peripheral IV Insertion Adult [OM.PC] Stat Oth 10/09/19 14:11 Ordered Labs: Laboratory Tests 10/09/19 10/09/19 10/09/19 Range/Units 14:16 14:16 14:50 WBC 8.4 (4.0-10.0) x10^3/uL RBC 4.91 (4.00-5.50) x10^6/uL Hgb 14.8 (12.0-16.0) g/dL Hct 42.5 (33.0-47.0) % MCV 86.6 (78.0-93.0) fL MCH 30.1 (26.0-32.0) pg MCHC 34.8 (32.0-36.0) g/dL RDW Coeff of Gregg 13.4 (10.0-15.0) % Plt Count 183 (130-400) x10^3/uL Neut % (Auto) 82.7 H (50.0-80.0) % Lymph % (Auto) 11.4 L (25.0-50.0) % [place] % (Auto) 4.9 (2.0-11.0) % Eos % (Auto) 0.8 (0.0-4.0) % Baso % (Auto) 0.2 (0.2-1.2) % Sodium 142 (136-145) mmol/L Potassium 3.5 (3.5-5.1) mmol/L Chloride 106 (98-107) mmol/L Carbon Dioxide 23 (21-32) mmol/L Anion Gap 16.5 (10-20) mmol/L BUN 6 L (7-18) mg/dL Creatinine 0.7 (0.55-1.02) mg/dL Est Cr Clr Drug Dosing TNP Estimated GFR (MDRD) > 60 Glucose 120 H (74-106) mg/dL Lactic Acid 1.6 (0.4-2.0) mmol/L Calcium 8.9 (8.5-10.1) mg/dL Corrected Calcium 8.82 (8.5-10.1) mg/dL Magnesium 2.1 (1.8-2.4) mg/dL Total Bilirubin 0.5 (0.2-1.0) mg/dL AST 16 (15-37) U/L ALT 8 L (14-59) U/L Alkaline Phosphatase 75 (46-116) U/L Troponin I < 0.017 (<=0.056) ng/mL C-Reactive Protein < 0.2 (<=0.9) mg/dL Total Protein 7.7 (6.4-8.2) g/dL Albumin 4.1 (3.4-5.0) g/dL Globulin 3.6 Albumin/Globulin Ratio 1.14 Lipase 78 (73-393) U/L Urine Color (YELLOW) Urine Appearance (CLEAR) Urine pH (5.0-8.0) Ur Specific [place] Urine Protein (NEGATIVE) mg/dL Urine Glucose (UA) (NEGATIVE) mg/dL Urine Ketones (NEGATIVE) mg/dL Urine Occult Blood (NEGATIVE) Urine Nitrite (NEGATIVE) Urine Bilirubin (NEGATIVE) Urine Urobilinogen (0.2) EU/dL Ur Leukocyte Esterase (NEGATIVE) Urine RBC (NOT SEEN) /HPF Urine WBC (NOT SEEN) /HPF Ur Squamous Epith Cells (NEGATIVE) /HPF Urine Bacteria (NEGATIVE) /HPF Urine Mucus (NEGATIVE) /LPF Urine Opiates Screen (NEGATIVE) Ur Buprenorphine Scrn (NEGATIVE) Ur Oxycodone Screen (NEGATIVE) Ur EDDP (Meth Metab) (NEGATIVE) Urine Methadone Screen (NEGATIVE) Ur Barbiturates Screen (NEGATIVE) Ur Tricyclics Screen (NEGATIVE) Ur Phencyclidine Scrn (NEGATIVE) Ur Amphetamine Screen (NEGATIVE) U Methamphetamines Scrn (NEGATIVE) Urine MDMA Screen (NEGATIVE) U Benzodiazepines Scrn (NEGATIVE) U Cocaine Metab Screen (NEGATIVE) U Marijuana (THC) Screen (NEGATIVE) Ethyl Alcohol < 3 (0-3) mg/dL 10/09/19 10/09/19 Range/Units 15:35 15:35 WBC (4.0-10.0) x10^3/uL RBC (4.00-5.50) x10^6/uL Hgb (12.0-16.0) g/dL Hct (33.0-47.0) % MCV (78.0-93.0) fL MCH (26.0-32.0) pg MCHC (32.0-36.0) g/dL RDW Coeff of Gregg (10.0-15.0) % Plt Count (130-400) x10^3/uL Neut % (Auto) (50.0-80.0) % Lymph % (Auto) (25.0-50.0) % [place] % (Auto) (2.0-11.0) % Eos % (Auto) (0.0-4.0) % Baso % (Auto) (0.2-1.2) % Sodium (136-145) mmol/L Potassium (3.5-5.1) mmol/L Chloride (98-107) mmol/L Carbon Dioxide (21-32) mmol/L Anion Gap (10-20) mmol/L BUN (7-18) mg/dL Creatinine (0.55-1.02) mg/dL Est Cr Clr Drug Dosing Estimated GFR (MDRD) Glucose (74-106) mg/dL Lactic Acid (0.4-2.0) mmol/L Calcium (8.5-10.1) mg/dL Corrected Calcium (8.5-10.1) mg/dL Magnesium (1.8-2.4) mg/dL Total Bilirubin (0.2-1.0) mg/dL AST (15-37) U/L ALT (14-59) U/L Alkaline Phosphatase (46-116) U/L Troponin I (<=0.056) ng/mL C-Reactive Protein (<=0.9) mg/dL Total Protein (6.4-8.2) g/dL Albumin (3.4-5.0) g/dL Globulin Albumin/Globulin Ratio Lipase (73-393) U/L Urine Color Yellow (YELLOW) Urine Appearance Slightly cloudy H (CLEAR) Urine pH 6.0 (5.0-8.0) Ur Specific [place] 1.025 Urine Protein Trace H (NEGATIVE) mg/dL Urine Glucose (UA) Negative (NEGATIVE) mg/dL Urine Ketones Trace H (NEGATIVE) mg/dL Urine Occult Blood Trace-intact H (NEGATIVE) Urine Nitrite Negative (NEGATIVE) Urine Bilirubin Small H (NEGATIVE) Urine Urobilinogen 1.0 (0.2) EU/dL Ur Leukocyte Esterase Negative (NEGATIVE) Urine RBC 5-10 H (NOT SEEN) /HPF Urine WBC 0-5 (NOT SEEN) /HPF Ur Squamous Epith Cells Few H (NEGATIVE) /HPF Urine Bacteria Rare (NEGATIVE) /HPF Urine Mucus Few H (NEGATIVE) /LPF Urine Opiates Screen Negative (NEGATIVE) Ur Buprenorphine Scrn Negative (NEGATIVE) Ur Oxycodone Screen Negative (NEGATIVE) Ur EDDP (Meth Metab) Negative (NEGATIVE) Urine Methadone Screen Negative (NEGATIVE) Ur Barbiturates Screen Negative (NEGATIVE) Ur Tricyclics Screen Negative (NEGATIVE) Ur Phencyclidine Scrn Negative (NEGATIVE) Ur Amphetamine Screen Positive H (NEGATIVE) U Methamphetamines Scrn Positive H (NEGATIVE) Urine MDMA Screen Negative (NEGATIVE) U Benzodiazepines Scrn Negative (NEGATIVE) U Cocaine Metab Screen Negative (NEGATIVE) U Marijuana (THC) Screen Positive H (NEGATIVE) Ethyl Alcohol (0-3) mg/dL Meds: Medications Discontinued Medications Generic Name Dose Route Start Last Admin Trade Name Freq PRN Reason Stop Dose Admin Haloperidol Lactate 2.5 mg 10/09/19 14:11 10/09/19 14:20 Haldol IV 10/09/19 14:12 2.5 mg ONETIME ONE Administration Lactated Ringer's 1,000 mls @ 999 mls/hr 10/09/19 14:11 10/09/19 14:21 Ringers, Lactated IV 10/09/19 15:11 999 mls/hr ONETIME ONE Administration Pantoprazole Sodium 40 mg 10/09/19 14:11 10/09/19 14:21 Protonix Iv IVPUSH 10/09/19 14:12 40 mg ONETIME ONE Administration Sodium Chloride 10 ml 10/09/19 14:11 Saline Flush FLUSH ASDIRECTED PRN Keep Vein Open - Re-Assessments/Exams Free Text/Narrative Re-Assessment/Exam: 10/09/19 21:25 The patient was given IV LR 1 liter wide open Protonix and haldol for nausea vomiting and abd pain which all resolved with this therapy. Her labs are pretty unremarkable. She does have blood in her urine although she relates that currently she is on her menses. Re-examination of the abd after the above therapy it is soft none tender and she feels much better. NO pain nausea or vomiting skin is pink warm and dry. I wonder if she doesn't have cannabis hyperemesis type syndrome. Or it could be from the methamphetamine that is in her system which she denies. I talked with her about this concern she was unconcerned and feels great and would like to leave. Will send home some nausea meds prn. She is comfortable with this plan and her questions answered. 10/09/19 21:29 Departure - Departure Time of Disposition: 16:45 Disposition: Home, Self-Care 01 Clinical Impression: Gastroenteritis, Methamphetamine abuse - Discharge Information *PRESCRIPTION DRUG MONITORING PROGRAM REVIEWED*: Not Applicable *COPY OF PRESCRIPTION DRUG MONITORING REPORT IN PATIENT STAR: Not Applicable Prescriptions: Ondansetron [Ondansetron ODT] 2 mg PO Q6H PRN #12 tab.rapdis PRN Reason: Vomiting Instructions: Viral Gastroenteritis, Adult, [id number], Nausea and Vomiting, Adult, [id number] Referrals: Rocío Pacheco MD [Primary Care Provider] - Forms: ED Department Discharge Additional Instructions: Home today easy diet. No dairy for 48 hours until symptom free. Clear liquid and slowly advance as tolerated. No spicy fatty or rich foods. [place] foods. BRATY Zofran 1 tablet under the tongue every 6 hrs as needed for nausea. RX to [facility]. Lots of oral fluids slowly and regularly especially electrolyte containing materials such as Gatorade and or Powerade. Return to the ED if new or worsening symptoms. Follow up with PCP in the next 4-6 days if not improving sooner if worse. Sepsis Event Note - Focused Exam Vital Signs: Vital Signs Temp Pulse Resp BP Pulse Ox 10/09/19 15:40 53 L 16 120/54 L 100 10/09/19 14:30 49 L 16 116/58 L 98 10/09/19 14:00 36.0 C L 40 L 16 123/58 L 100 Date Exam was Performed: 10/09/19 Time Exam was Performed: 21:22 - My Orders Last 24 Hours: My Active Orders 10/09/19 14:11 EKG Documentation Completion [RC] STAT Peripheral IV Insertion Adult [OM.PC] Stat - Assessment/Plan Last 24 Hours: My Active Orders 10/09/19 14:11 EKG Documentation Completion [RC] STAT Peripheral IV Insertion Adult [OM.PC] Stat Assessment:: Gastroenteritis, ? cannaboid hyperemesis. Methamphetamine abuse. Plan: Home today easy diet. No dairy for 48 hours until symptom free. Clear liquid and slowly advance as tolerated. No spicy fatty or rich foods. [place] foods. BRATY Zofran 1 tablet under the tongue every 6 hrs as needed for nausea. RX to [facility]. Lots of oral fluids slowly and regularly especially electrolyte containing materials such as Gatorade and or Powerade. Return to the ED if new or worsening symptoms. Follow up with PCP in the next 4-6 days if not improving sooner if worse.
[2019-10-09 20:03] VITALS: BP 120/54; PULSE 53
== END 2019-10-09 16:50 | disposition home or self-care (01) ==
LOC: VM.ED 13:53
DX: K52.9 Noninfective gastroenteritis and colitis, unspecified (principal); F15.10 Other stimulant abuse, uncomplicated; Z88.5 Allergy status to narcotic agent
CPT/HCPCS: 36415; 80053; 80305; 80307; 81001; 83605; 83690; 83735; 84484; 85025; 86140; 93005; 96361; 96374; 96375; 99284; C9113; J1630; J7120

== ENCOUNTER 2019-12-17 15:57 | Emergency (ER) | payer MEDICAID ==
[2019-12-17 16:08] VITALS: BP 119/62; PULSE 85
[2019-12-17] MEDS ORDERED: Sodium Chloride 0.9% 10 ML Syringe FLUSH PRN (16:21)
[2019-12-17] MEDS ORDERED: Ondansetron 4 MG/2 ML SDV IV ONE (16:21)
[2019-12-17] MEDS ORDERED: diphenhydrAMINE 50 MG/ML SDV IVPUSH ONE (16:21)
[2019-12-17] MEDS ORDERED: Ketorolac 30 MG/ML SDV IVPUSH ONE (16:21)
[2019-12-17] MEDS ORDERED: Lactated Ringers 1,000 ML IV ONE (16:27)
[2019-12-17 16:56] LABS: CHLORIDE,CL 105 mmol/L (98-107); SODIUM,NA 140 mmol/L (136-145)
[2019-12-17 16:59] LABS: ANION GAP 14.4 mmol/L (10-20)
--- NOTE | 2019-12-17 17:09 | EDM.PDOC ---
ED HPI GENERAL MEDICAL PROBLEM - General Chief Complaint: General Stated Complaint: GENERAL Time Seen by Provider: 12/17/19 16:15 Source of Information: Reports: Patient History Limitations: Reports: No Limitations - History of Present Illness INITIAL COMMENTS - FREE TEXT/NARRATIVE: Patient comes emergency department today by herself with complaints of a headache nausea and vomiting. This patient awoke this morning and was asymptomatic. 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 While she was taking care of it she became very hot flushed. Somewhat lightheaded. She developed a headache. She went home and took a nap thinking it would go away. When she woke up she continues to have this generalized headache. She has no visual disturbances. No fever no chills. She does have a history of a migraine and she feels like it is going to turn into 1. She has h ad nausea and vomited twice at home. She is shaky. She has no visual acuity changes. No paresthesias of her upper or lower extremities. No stiff neck. She did not feel any better after she went home after work. She has no abdominal pain. But does have nausea and vomiting. No diarrhea. No chest pain or shortness of breath or difficulty breathing. No hematuria dysuria or urinary frequency. Headache Pain Score (Numeric/FACES): 8 - Related Data Allergies Allergy/AdvReac Type Severity Reaction Status Date / Time codeine Allergy Severe Anaphylactic Verified 12/17/19 16:10 Shock Home Meds: Home Meds . 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 ED EXAM, GENERAL - Physical Exam Exam: See Below Exam Limited By: No Limitations General Appearance: Alert, WD/WN, No Apparent Distress Eye Exam: Bilateral Eye: EOMI, PERRL Ears: Normal External Exam, Normal TMs Nose: Normal Inspection Throat/Mouth: Normal Inspection, Normal Lips, Normal Oropharynx Head: Atraumatic, Normocephalic Neck: Normal Inspection, Supple, Non-Tender Respiratory/Chest: No Respiratory Distress, Lungs Clear, Normal Breath Sounds, No Accessory Muscle Use, Chest Non-Tender Cardiovascular: Normal Peripheral Pulses, Regular Rate, Rhythm Peripheral Pulses: 2+: Radial (L), Radial (R), Posterior Tibial (L), Posterior Tibial (R), Dorsalis Pedis (L), Dorsalis Pedis (R) GI/Abdominal: Normal Bowel Sounds, Soft, Non-Tender (Female) Exam: Deferred Rectal (Female) Exam: Deferred Back Exam: Normal Inspection, Full Range of Motion Extremities: Normal Inspection, Normal Range of Motion, No Pedal Edema, Normal Capillary Refill Neurological: Alert, Oriented, Normal Cognition, No Motor/Sensory Deficits Psychiatric: Normal Affect, Normal Mood Skin Exam: Warm, Dry, Intact, Normal Color, No Rash Lymphatic: No Adenopathy Course - Vital Signs Last Recorded V/S: Last Vital Signs Temp 36.8 C 12/17/19 16:00 Pulse 85 12/17/19 16:00 Resp 16 12/17/19 16:00 BP 119/62 12/17/19 16:00 Pulse Ox 97 12/17/19 16:00 - Orders/Labs/Meds Orders: Active Orders 24 hr Category Date Time Status UA RFX EDITH AND CULT IF INDIC [URIN] Stat Lab 12/17/19 16:20 Ordered Sodium Chloride 0.9% [Saline Flush] Med 12/17/19 16:21 Active 10 ml FLUSH ASDIRECTED PRN Peripheral IV Insertion Adult [OM.PC] Stat Oth 12/17/19 16:20 Ordered Medication Orders Sodium Chloride (Saline Flush) 10 ml FLUSH ASDIRECTED PRN PRN Reason: Keep Vein Open Labs: Laboratory Tests 12/17/19 12/17/19 Range/Units 16:33 16:33 WBC 5.5 (4.0-10.0) x10^3/uL RBC 4.48 (4.00-5.50) x10^6/uL Hgb 13.6 (12.0-16.0) g/dL Hct 40.1 (33.0-47.0) % MCV 89.5 (78.0-93.0) fL MCH 30.4 (26.0-32.0) pg MCHC 33.9 (32.0-36.0) g/dL RDW Coeff of Gregg 14.6 (10.0-15.0) % Plt Count 175 (130-400) x10^3/uL Neut % (Auto) 73.7 (50.0-80.0) % Lymph % (Auto) 13.8 L (25.0-50.0) % Frio % (Auto) 11.6 H (2.0-11.0) % Eos % (Auto) 0.7 (0.0-4.0) % Baso % (Auto) 0.2 (0.2-1.2) % Sodium 140 (136-145) mmol/L Potassium 3.4 L (3.5-5.1) mmol/L Chloride 105 (98-107) mmol/L Carbon Dioxide 24 (21-32) mmol/L Anion Gap 14.4 (10-20) mmol/L BUN 8 (7-18) mg/dL Creatinine 0.7 (0.55-1.02) mg/dL Est Cr Clr Drug Dosing TNP Estimated GFR (MDRD) > 60 Glucose 112 H (74-106) mg/dL Calcium 8.2 L (8.5-10.1) mg/dL Corrected Calcium 8.44 L (8.5-10.1) mg/dL Total Bilirubin 0.3 (0.2-1.0) mg/dL AST 35 (15-37) U/L ALT 38 (14-59) U/L Alkaline Phosphatase 68 (46-116) U/L C-Reactive Protein 0.7 (<=0.9) mg/dL Total Protein 7.0 (6.4-8.2) g/dL Albumin 3.7 (3.4-5.0) g/dL Globulin 3.3 Albumin/Globulin Ratio 1.12 Meds: Medications Generic Name Dose Route Start Last Admin Trade Name Fregualberto PRN Reason Stop Dose Admin Sodium Chloride 10 ml 12/17/19 16:21 Saline Flush FLUSH ASDIRECTED PRN Keep Vein Open Discontinued Medications Generic Name Dose Route Start Last Admin Trade Name Maryellen PRN Reason Stop Dose Admin Diphenhydramine HCl 25 mg 12/17/19 16:21 12/17/19 16:39 Benadryl IVPUSH 12/17/19 16:22 25 mg ONETIME ONE Administration Lactated Ringer's 1,000 mls @ 999 mls/hr 12/17/19 16:27 12/17/19 16:37 Ringers, Lactated IV 12/17/19 17:27 999 mls/hr ONETIME ONE Administration Ketorolac Tromethamine 30 mg 12/17/19 16:21 12/17/19 16:42 Toradol IVPUSH 12/17/19 16:22 30 mg ONETIME ONE Administration Ondansetron HCl 4 mg 12/17/19 16:21 12/17/19 16:38 Zofran IV 12/17/19 16:22 4 mg ONETIME ONE Administration - Re-Assessments/Exams Free Text/Narrative Re-Assessment/Exam: 12/17/19 17:08 Are 1 L wide open. Benadryl 25 mg IV push. Ketorolac 30 mg IV push. Zofran grams IV push. Labs drawn. 12/17/19 17:45 The patient's headache is down to a 2. Her nausea is resolved. She feels quite a bit better. We will discharge her home at this time. I am unsure if she had a little bit of heat exposure or just some underlying dehydration although her labs are rather unremarkable and she is much better after the above therapy. I will send her home with some Zofran for nausea in case it develops tonight to ensure that she stays well-hydrated. Departure - Departure Time of Disposition: 17:45 Disposition: Home, Self-Care 01 Clinical Impression: Dehydration Headache Qualifiers: Headache type: unspecified Headache chronicity pattern: acute headache Intractability: not intractable Qualified Code(s): R51 - Headache - Discharge Information Instructions: Dehydration, Adult, [id number] Referrals: Rocío Pacheco MD [Primary Care Provider] - Forms: ED Department Discharge Additional Instructions: Rest tonight. Make sure and drink plenty of fluids tonight. Zofran 1 tablet every 6 hrs as needed for nausea. Starter pack from the ED given. Easy diet advance as tolerated. REturn to the ED if new or worsening symptoms. Follow up with PCP if any problems or concerns. Sepsis Event Note (ED) - Evaluation Sepsis Screening Result: No Definite Risk - Focused Exam Vital Signs: Vital Signs Temp Pulse Resp BP Pulse Ox 12/17/19 16:00 36.8 C 85 16 119/62 97 - My Orders Last 24 Hours: My Active Orders 12/17/19 16:20 UA RFX EDITH AND CULT IF INDIC [URIN] Stat Peripheral IV Insertion Adult [OM.PC] Stat 12/17/19 16:21 Sodium Chloride 0.9% [Saline Flush] 10 ml FLUSH ASDIRECTED PRN - Assessment/Plan Last 24 Hours: My Active Orders 12/17/19 16:20 UA RFX EDITH AND CULT IF INDIC [URIN] Stat Peripheral IV Insertion Adult [OM.PC] Stat 12/17/19 16:21 Sodium Chloride 0.9% [Saline Flush] 10 ml FLUSH ASDIRECTED PRN
[2019-12-17] MEDS ORDERED: Take Home: Ondansetron 4 MG Tab.DIS, 2 Tab Pack PO ONE (17:48)
== END 2019-12-17 18:00 | disposition home or self-care (01) ==
LOC: VM.ED 15:57
DX: E86.0 Dehydration (principal); Z88.5 Allergy status to narcotic agent
CPT/HCPCS: 80053; 85025; 86140; 96361; 96374; 96375; 99284; J1200; J1885; J2405; J7120; A9270-GY

== ENCOUNTER 2020-03-15 22:41 | Emergency (ER) | payer MEDICAID ==
[2020-03-15] MEDS ORDERED: Ketorolac 30 MG/ML SDV IM ONE (23:49)
--- NOTE | 2020-03-16 00:05 | EDM.PDOC ---
ED HPI GENERAL MEDICAL PROBLEM - General Stated Complaint: FOOT PAIN Time Seen by Provider: 03/15/20 23:29 Source of Information: Reports: Patient - History of Present Illness INITIAL COMMENTS - FREE TEXT/NARRATIVE: Tiffany is a 39 y/o female who comes to the ER tonight with pain in her right foot. She reports that she has had several sores on her right foot and she was seen today at the [facility]. She was placed on Keflex 500mg TID x 7 days. She has taken 1 dose os of this ER visit. She reports taking Advil for pain, but it has not helped. No fever. - Related Data Allergies Allergy/AdvReac Type Severity Reaction Status Date / Time codeine Allergy Severe Anaphylactic Verified 12/17/19 16:10 Shock Home Meds: Home Meds . 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 Psychiatric History: Reports: Anxiety, Depression, Panic Attack, Psych Hospitalization(s), Suicide Attempt Hematologic History: Reports: Blood Transfusion(s) - Infectious Disease History Infectious Disease History: Reports: None - Past Surgical History GI Surgical History: Reports: Appendectomy, Cholecystectomy Female Surgical History: Reports: Section, Hysterectomy, Oophorectomy Social & Family History - Caffeine Use Caffeine Use: Reports: Coffee, Soda Review of Systems - Review of Systems Review Of Systems: See Below Constitutional: Reports: No Symptoms Eyes: Reports: No Symptoms Ears: Reports: No Symptoms Nose: Reports: No Symptoms Mouth/Throat: Reports: No Symptoms Respiratory: Reports: No Symptoms Cardiovascular: Reports: No Symptoms GI/Abdominal: Reports: No Symptoms Genitourinary: Reports: No Symptoms Musculoskeletal: Reports: No Symptoms Skin: Reports: Lesions (right foot) ED EXAM, GENERAL - Physical Exam Exam: See Below General Appearance: Alert, WD/WN (Adult female, writhing in pain during assessment and moving right foot) Ears: Hearing Grossly Normal Ear Exam: Right Ear: Auricle Normal Throat/Mouth: Normal Voice Head: Atraumatic, Normocephalic Neck: Normal Inspection Respiratory/Chest: No Respiratory Distress Cardiovascular: Regular Rate, Rhythm GI/Abdominal: Soft, No Distention (Female) Exam: Deferred Rectal (Female) Exam: Deferred Back Exam: Normal Inspection Extremities: Other (Note several circular sores on to of right foot and then a smaller area that is pus filled, mild swelling to right foot and tender to any touch; no erythema noted) Neurological: Alert, Oriented, CN II-XII Intact Psychiatric: Anxious, Tearful Skin Exam: Warm, Dry, Normal Color Lymphatic: No Adenopathy Course - Vital Signs Text/Narrative:: 0680 The patient was seen by the [employer]ACHINE [employer]. CBC and xray were ordered. She was given Toradol 30mg IM for pain. 0010 CBC negative. XR Right Foot no acute findings. Results discussed with patient. She is resting and more relaxed since Toradol. Discharge instructions were reviewed with the patient and her family. She left the ER in stable condition. - Orders/Labs/Meds Orders: Active Orders 24 hr Category Date Time Status Foot 2V Rt [CR] Stat Exams 03/15/20 23:45 Ordered Labs: Laboratory Tests 03/15/20 Range/Units 23:55 WBC 9.1 (4.0-10.0) x10^3/uL RBC 4.47 (4.00-5.50) x10^6/uL Hgb 13.6 (12.0-16.0) g/dL Hct 38.4 (33.0-47.0) % MCV 85.9 D (78.0-93.0) fL MCH 30.4 (26.0-32.0) pg MCHC 35.4 (32.0-36.0) g/dL RDW Coeff of Gregg 12.8 (10.0-15.0) % Plt Count 176 (130-400) x10^3/uL Neut % (Auto) 73.7 (50.0-80.0) % Lymph % (Auto) 15.2 L (25.0-50.0) % [place] % (Auto) 9.6 (2.0-11.0) % Eos % (Auto) 1.4 (0.0-4.0) % Baso % (Auto) 0.1 L (0.2-1.2) % Meds: Medications Discontinued Medications Generic Name Dose Route Start Last Admin Trade Name Maryellen PRN Reason Stop Dose Admin Ketorolac Tromethamine 30 mg 03/15/20 23:49 Toradol IM 03/15/20 23:50 ONETIME ONE - Radiology Interpretation Free Text/Narrative:: XR Right Foot 2V-no acute findings Departure - Departure Time of Disposition: 00:09 Disposition: Home, Self-Care 01 Condition: Good Clinical Impression: Superficial skin infection - Discharge Information *PRESCRIPTION DRUG MONITORING PROGRAM REVIEWED*: No *COPY OF PRESCRIPTION DRUG MONITORING REPORT IN PATIENT STAR: No Instructions: Cellulitis, Adult Referrals: Rocío Pacheco MD [Primary Care Provider] - Additional Instructions: -Continue the Keflex 500mg oral 3x daily as prescribed by Sarah Cramer PA-C -Use ibuprofen (Advil) 200mg 3 tablets every 6 hours for pain. -Alternate the ibuprofen with acetaminophen (Tylenol) 325mg 2-3 tablets oral every 6 hours -May apply OTC Neosporin ointment with bandaid to the open areas -If pain persists, follow up with your PCP for further care - My Orders Last 24 Hours: My Active Orders 03/15/20 23:45 Foot 2V Rt [CR] Stat - Assessment/Plan Last 24 Hours: My Active Orders 03/15/20 23:45 Foot 2V Rt [CR] Stat
[2020-03-16 03:34] VITALS: BP 121/70; PULSE 64
--- NOTE | 2020-03-16 08:22 | CR ---
[id number] RAD/RAD Foot Right 2V EXAM: RAD Foot Right 2V CLINICAL DATA: METATARSAL PAIN COMPARISON: CORRELATION IS MADE WITH JANUARY 13, 2018 FINDINGS: No fracture or dislocation is seen. There is no radiopaque foreign body in the soft tissues. There is no air in the soft tissues. There is no cortical thickening or periosteal reaction either. IMPRESSION: NEGATIVE PLAIN FILM EXAM. Jerod Wilkes MD 03/16/20 0821 Thank you for allowing us to participate in the care of your patient.
== END 2020-03-16 00:40 | disposition home or self-care (01) ==
LOC: VM.ED 22:41
DX: L08.9 Local infection of the skin and subcutaneous tissue, unspecified (principal); F17.200 Nicotine dependence, unspecified, uncomplicated
CPT/HCPCS: 36415; 73620-RT; 85025; 96372; 99283; J1885

== ENCOUNTER 2020-04-04 13:58 | Emergency (ER) | payer MEDICAID ==
[2020-04-04] MEDS ORDERED: Ondansetron 4 MG/2 ML SDV IM ONE (14:13)
[2020-04-04] MEDS ORDERED: Ketorolac 60 MG/2 ML SDV IM ONE (14:13)
--- NOTE | 2020-04-04 14:20 | EDM.PDOC ---
ED HPI GENERAL MEDICAL PROBLEM - General Chief Complaint: Headache Stated Complaint: HEADACHE,NAUSEA Time Seen by Provider: 04/04/20 14:00 Source of Information: Reports: Patient History Limitations: Reports: No Limitations - History of Present Illness INITIAL COMMENTS - FREE TEXT/NARRATIVE: Patient presents to ER today with a migraine headache. Started to have the light flashes yesterday and a headache soon after. Has pain to the right parietal region of her head. No head trauma. Does have a history of migraine headaches. Often able to control with resting in a dark quiet room but hasn't gotten any relief with doing that. She denies any neurological changes. Does admit to nausea, light sensitivity, sound sensitivity. No vomiting. No weakness. Onset: Gradual Duration: Hour(s):, Getting Worse Location: Reports: Head Quality: Reports: Throbbing Severity: Severe Improves with: Reports: None Worsens with: Reports: Other (light and sound) Associated Symptoms: Reports: Headaches. Denies: Confusion, Chest Pain, Cough, Fever/Chills, Loss of Appetite, Nausea/Vomiting, Shortness of Breath, Syncope, Weakness - Related Data Allergies Allergy/AdvReac Type Severity Reaction Status Date / Time codeine Allergy Severe Anaphylactic Verified 03/16/20 03:28 Shock Home Meds: Home Meds . 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 Psychiatric History: Reports: Anxiety, Depression, Panic Attack, Psych Hospitalization(s), Suicide Attempt Hematologic History: Reports: Blood Transfusion(s) - Infectious Disease History Infectious Disease History: Reports: None - Past Surgical History GI Surgical History: Reports: Appendectomy, Cholecystectomy Female Surgical History: Reports: Section, Hysterectomy, Oophorectomy Social & Family History - Tobacco Use Smoking Status *Q: Unknown Ever Smoked - Caffeine Use Caffeine Use: Reports: Coffee, Soda ED ROS GENERAL - Review of Systems Review Of Systems: See Below Constitutional: Denies: Fever, Chills, Malaise, Weakness, Fatigue, Decreased Appetite HEENT: Reports: Sinus Problem. Denies: Ear Pain, Throat Pain, Vertigo Respiratory: Denies: Shortness of Breath, Cough Cardiovascular: Denies: Chest Pain, Edema, Lightheadedness Endocrine: Denies: Fatigue GI/Abdominal: Reports: Nausea. Denies: Abdominal Pain, Constipation, Diarrhea, Vomiting : Reports: No Symptoms Musculoskeletal: Denies: Neck Pain Skin: Reports: No Symptoms Neurological: Reports: Headache - Physical Exam Exam: See Below Exam Limited By: No Limitations General Appearance: Alert, WD/WN, No Apparent Distress Eye Exam: Bilateral Eye: EOMI, PERRL Ears: Normal External Exam, Normal TMs Nose: Normal Inspection, Normal Mucosa, No Blood Throat/Mouth: Normal Inspection, Normal Oropharynx Head Exam: Normocephalic Neck: Normal Inspection, Supple, Non-Tender Respiratory/Chest: No Respiratory Distress, Lungs Clear, Normal Breath Sounds Cardiovascular: Regular Rate, Rhythm GI/Abdominal: Normal Bowel Sounds, Soft, Non-Tender Neuro Exam (Abbreviated): Alert, Oriented, CN II-XII Intact, Normal Cognition, Normal Gait, No Motor/Sensory Deficits Extremities: Normal Inspection, No Pedal Edema Skin Exam: Warm, Dry Course - Orders/Labs/Meds Meds: Medications Discontinued Medications Generic Name Dose Route Start Last Admin Trade Name Jasperq PRN Reason Stop Dose Admin Ketorolac Tromethamine 60 mg 04/04/20 14:13 04/04/20 14:22 Toradol IM 04/04/20 14:14 60 mg ONETIME ONE Administration Ondansetron HCl 4 mg 04/04/20 14:13 04/04/20 14:21 Zofran IM 04/04/20 14:14 4 mg ONETIME ONE Administration - Re-Assessments/Exams Free Text/Narrative Re-Assessment/Exam: 04/04/20 14:21 Toradol and Zofran IM given 04/04/20 14:40 Patient feels injections are starting to work. Ready to be discharged. Departure - Departure Time of Disposition: 14:48 Disposition: Home, Self-Care 01 Condition: Good Clinical Impression: Migraine - Discharge Information *PRESCRIPTION DRUG MONITORING PROGRAM REVIEWED*: No *COPY OF PRESCRIPTION DRUG MONITORING REPORT IN PATIENT STAR: No Instructions: Migraine Headache, [id number] Referrals: Rocío Pacheco MD [Primary Care Provider] - Forms: ED Department Discharge Additional Instructions: 1. Rest 2. Quiet room/avoid extra stimulation 3. Push fluids 4. Tylenol or ibuprofen/excedrin migraine as needed 5. Follow up with primary care provider as needed.
[2020-04-04 21:15] VITALS: BP 147/65; PULSE 87
== END 2020-04-04 15:00 | disposition home or self-care (01) ==
LOC: VM.ED 13:58
DX: G43.909 Migraine, unspecified, not intractable, without status migrainosus (principal); Z88.5 Allergy status to narcotic agent; Z90.49 Acquired absence of other specified parts of digestive tract; Z90.710 Acquired absence of both cervix and uterus
CPT/HCPCS: 96372; 99283; J1885; J2405

== ENCOUNTER 2020-12-05 10:33 | Emergency (ER) | payer MEDICAID ==
[2020-12-05 10:56] VITALS: BP 103/60; PULSE 66
[2020-12-05] MEDS: Take Home: Naproxen 500 MG Tab, 4 Tab Pack PO ONE (11:00)
[2020-12-05] MEDS: Take Home: Cyclobenzaprine 10 MG Tab, 4 Tab Pack PO ONE (11:00)
--- NOTE | 2020-12-05 11:00 | EDM.PDOC ---
ED HPI GENERAL MEDICAL PROBLEM - General Chief Complaint: Upper Extremity Injury/Pain Stated Complaint: Right Shoulder Pain Time Seen by Provider: 12/05/20 10:54 Source of Information: Reports: Patient History Limitations: Reports: No Limitations - History of Present Illness INITIAL COMMENTS - FREE TEXT/NARRATIVE: Patient comes emergency department today with complaints of right shoulder pain. This patient has somewhat of a chronic sequelae of recurrent right shoulder pain. 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 She got home from work last night and she just had aching pain in the joint of her right shoulder. She has had no recent falls or trauma or injury to her shoulder. She denies any paresthesias to her right arm. She denies any neck pain. She denies any change in the functionality of her right upper extremity. She did try some Tylenol and ibuprofen last night without much improvement. 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: Dysfunctional Uterine Bleeding, Musculoskeletal History: Reports: Arthritis Neurological History: Reports: Concussion, Headaches, Chronic, Migraines Other Neuro History: nuerofibromatosis, 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 ED EXAM, GENERAL - Physical Exam Exam: See Below Exam Limited By: No Limitations General Appearance: Alert, WD/WN, No Apparent Distress Respiratory/Chest: No Respiratory Distress Cardiovascular: Normal Peripheral Pulses Peripheral Pulses: 2+: Radial (L), Radial (R) Back Exam: Normal Inspection, Full Range of Motion Extremities: Other (She has normal external rotation and abduction. Normal internal rotation and adduction. She has a negative empty can test ). No: Normal Inspection (There is no bruising swelling ecchymosis bony deformity or tenderness to the right shoulder or scapular region. She does have some decreased range of motion it is difficult for her to get her arm above her head. I am able to put the shoulder throughout the passive range of motion with minimal disc) Course - Vital Signs Last Recorded V/S: Last Vital Signs Temp 98.1 F 12/05/20 10:50 Pulse 66 12/05/20 10:50 Resp 14 12/05/20 10:50 BP 103/60 12/05/20 10:50 Pulse Ox 98 12/05/20 10:50 - Orders/Labs/Meds Meds: Medications Discontinued Medications Generic Name Dose Route Start Last Admin Trade Name Maryellen PRN Reason Stop Dose Admin Cyclobenzaprine HCl 1 packet 12/05/20 10:54 12/05/20 11:00 Take Home: Cyclobenzaprine 10 Mg Tab, 4 Tab Pack PO 12/05/20 10:55 1 packet ONETIME ONE Administration Naproxen 1 packet 12/05/20 10:54 12/05/20 11:00 Take Home: Naproxen 500 Mg Tab, 4 Tab Pack PO 12/05/20 10:55 1 packet ONETIME ONE Administration - Re-Assessments/Exams Free Text/Narrative Re-Assessment/Exam: 12/05/20 14:22 I do not feel that any radiographic evaluation of this patient's somewhat chronic shoulder pain without having a specific traumatic injury will assist us at this time. Will use a sling for symptomatic management. Naproxen and Fle xeril. 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 I do not see any signs of rotator cuff injury or tendon injury. We will treat her symptomatically at this time and if she is not improving see physical therapy and her primary care to consider some injections into the joint. She is comfortable with this plan and her questions were answered. Departure - Departure Time of Disposition: 10:56 Disposition: Home, Self-Care 01 Clinical Impression: Shoulder pain, right Qualifiers: Chronicity: acute Qualified Code(s): M25.511 - Pain in right shoulder - Discharge Information Prescriptions: Cyclobenzaprine [Flexeril] 10 mg PO TID PRN #12 tab PRN Reason: Pain Naproxen 500 mg PO BID PRN #9 tablet PRN Reason: Pain Instructions: RICE Therapy for Routine Care of Injuries, [id number], Pain Medicine Instructions, [id number], Joint Pain, [id number] Referrals: Rocío Pacheco MD [Primary Care Provider] - Forms: ED Department Discharge Additional Instructions: Naproxen 1 tablet twice daily as needed for pain. Starter pack given in the ED and RX sent to [facility]. Flexeril, 1 tablet three times a day as needed for shoulder pain. Starter pack from the ED. Rx sent to [facility]. Caution sedation. Sling as needed for comfort to the shoulder. RICE therapy see discharge instructions. Slowly increase usage. Although regular passive Range of motion is important to do every 2 hrs. If not improving in 1 week see physical therapy. Recheck in the clinic in one week if not improving sooner if worse. Sepsis Event Note (ED) - Focused Exam Vital Signs: Vital Signs Temp Pulse Resp BP Pulse Ox 12/05/20 10:50 98.1 F 66 14 103/60 98
== END 2020-12-05 11:12 | disposition home or self-care (01) ==
LOC: SUPCPDRO 10:33 → VM.ED 10:33
DX: M25.511 Pain in right shoulder (principal); F17.200 Nicotine dependence, unspecified, uncomplicated; Z88.5 Allergy status to narcotic agent
CPT/HCPCS: 99283; A9270-GY

== ENCOUNTER 2025-06-16 18:44 | Emergency (ER) | payer MEDICAID, OTHER ==
[2025-06-16] MEDS: Ketorolac 30 MG/ML SDV IM ONE (19:17)
[2025-06-16 19:18] VITALS: BP 131/78; PULSE 94
== END 2025-06-16 19:37 | disposition home or self-care (01) ==
LOC: VM.ED 18:44
DX: M54.50 Low back pain, unspecified (principal); Z88.5 Allergy status to narcotic agent; Z90.49 Acquired absence of other specified parts of digestive tract; Z90.710 Acquired absence of both cervix and uterus
CPT/HCPCS: 96372; 99283; 99284; J1885; J3360